=== PATIENT | male | born 1980 | race Caucasian/White ===

== ENCOUNTER → 2019-05-11 | Outpatient (CLI) | payer OTHER ==
--- NOTE | 2019-05-11 14:56 | CARD ---
MR#: [id number] Date of Study: 05/11/2019 Ordering Physician: ANITA GONZALEZ, Referring Physician: ANITA GONZALEZ Tech: Agnelica Laird RDCS APPROVED REPORT INDICATION Chest Pain RISK FACTORS Family History Reason : Patient complained of pain PROCEDURE The patient underwent an Exercise Stress Test using the [place] Protocol. Blood pressure, heart rate, a nd EKG were monitored. An Echocardiogram was performed by metallurgical engineering technician in four stages in quad fashion. At peak stress four se lected images were obtained and placed side by side with resting images for comparison. STRESS ECHO FINDINGS The resting Echocardiogram showed normal left ventricular systolic contractility with an estimated Ej ection Fraction of about 60 %. The Resting Echocardiogram showed normal augmentation of myocardial wall segments using a 16 segment model. The Stress Echocardiogram showed normal augmentation of myocardial wall segments using a 16 segment m aditya. The Stress Echocardiogram left ventricular systolic contractility has an estimated Ejection Fraction of about 70%. Test Type: Exercise Stress Nurse/Tech: Mae Loya RN Test Indications: Chest pain Cardiac History and Allergies: Family history, former smoker Medications: see EMR Medical History: see EMR Resting ECG: SR Resting Heart Rate: 86 bpm Resting Blood Pressure: 126/55mmHg Pretest Chest Pain: No chest pain Nurse/Tech Notes S1,S2 and lungs clear to auscultation. Stress Symptoms Fatigue, patient got a cramp in his left leg and was unable to keep exercising POST EXERCISE Reason for Termination: Fatigue, Patient request Target HR: No Max HR: 167 bpm 91% of Maximum Predicted HR: 184 bpm Exercise duration: 8:11 min:sec, 3 Stage Exercise capacity: 10.1METs Max Blood Pressure: 166/62mmHg Blood Pressure response to exercise: Normal blood pressure response during stress. Heart Rate response to exercise: WNL Chest Pain: No. Arrhythmia: No. ST Change: No. INTERPRETATION Stress EKG Conclusion: Baseline EKG showed sinus rhythm. No ischemic changes at peak stress. No arr hythmias. Preliminary Notification Critical Value: No <Conclusion> Treadmill exercise stress echocardiogram did not show any evidence of ischemia or infarct. Normal left ventricle systolic function with ejection fraction estimated at 60%. Patient had good activity tolerance. Low risk for cardiac events. Signed by : Anita Gonzalez, Electronically Approved : 05/11/2019 14:56:12
== END | disposition home or self-care (01) ==
LOC: ECHO 12:37
PROVIDERS: ATTEND Internal Medicine Cardiovascular Disease
DX: R07.9 Chest pain, unspecified (principal); R53.83 Other fatigue; R25.2 Cramp and spasm; Z82.49 Family history of ischemic heart disease and other diseases of the circulatory system; Z87.891 Personal history of nicotine dependence
CPT/HCPCS: 93017; 93350